=== PATIENT | male | born 1950 | race Caucasian/White ===

== ENCOUNTER 2019-05-31 06:10 | Inpatient (IN) ==
--- NOTE | 2019-05-17 11:33 | PAT Medication Instructions ---
Medication Instructions Date of Service May 17, 2019 Home Medications acetaminophen [Tylenol Extra Strength] 500 mg PO DAILY NEEDED flecainide 150 mg PO Q12H lisinopril-hydrochlorothiazide 1 tab PO QAM omeprazole 40 mg PO QAM sildenafil 40 mg PO DAILY NEEDED tamsulosin 0.4 mg PO QPM DO NOT take the morning of surgery lisinopril-hydrochlorothiazide 1 tab PO QAM Take morning of surgery With a small sip of water, OTHERWISE NOTHING TO EAT OR DRINK AFTER MIDNIGHT: acetaminophen [Tylenol Extra Strength] 500 mg PO DAILY NEEDED (if needed; stop 4 hours before surgery) omeprazole 40 mg PO QAM flecainide 150 mg PO Q12H Take evening before surgery acetaminophen [Tylenol Extra Strength] 500 mg PO DAILY NEEDED (if needed) tamsulosin 0.4 mg PO QPM sildenafil 40 mg PO DAILY NEEDED flecainide 150 mg PO Q12H Other Notes If you have any questions please call us at [phone] or [phone] or [phone] or [phone]
--- NOTE | 2019-05-17 11:43 | Anesthesiology Consultation ---
Date of Service May 17, 2019 Assessment & Plan (1) Encounter for pre-operative examination: - No previous anesthesia records Chart Review Chart Review: Pending: Refer to Additional Notes / Consult section (Patient is acceptable risk for surgery pending medical preoperative assesment from PCP. ) and Patient seen in Pre Admission Testing Consults Requested medical (Dr. Hannah (05/18)) Teaching & Discussion Pre-Anesthesia Teaching/Discussion Notes: Instructed NPO after midnight before surgery, except medications with 15 cc of water. Medication instructions provided according to the PAT guidelines. History Surgery Operation Date: 05/31/19 07:45 Proposed Procedures p L4-S1 Decompression and Fusion, Spinal Cord Monitoring - Carlos Zafar, Height/Weight Height: 6 ft 2 in Weight: 102.5 kg Allergies Allergy/AdvReac Type Severity Reaction Status Date / Time No Known Allergies Allergy Verified 04/26/19 08:03 Medications Home Medications Medication Instructions Recorded Confirmed Last Taken acetaminophen [Tylenol Extra 500 mg PO DAILY PRN 04/26/19 04/26/19 Unknown Strength] flecainide 150 mg PO Q12H 04/26/19 04/26/19 Unknown lisinopril-hydrochlorothiazide 1 tab PO QAM 04/26/19 04/26/19 Unknown omeprazole 40 mg PO QAM 04/26/19 04/26/19 Unknown sildenafil (antihypertensive) 40 mg PO DAILY PRN 04/26/19 04/26/19 Unknown tamsulosin 0.4 mg PO QAM 04/26/19 04/26/19 Unknown Past Medical History Medical History Atrial fibrillation BPH (benign prostatic hyperplasia) GERD (gastroesophageal reflux disease) History of Vu's esophagus History of GI bleed ?8-9 YR AGO D/T WARFARIN Hx of deep venous thrombosis Hypertension Leg pain, bilateral D/T NERVE PINCHED Exercise / Class Metabolic Activity III < 4 Walking/Shop/Light housework (Limited due to back pain into legs for the past 2 weeks. 2 weeks ago walked 15 miles. Denies CP or SOB. Able to climb FOS. ) Past Family History Family History Other FHx: cancer Past Surgical History Surgical History History of back surgery History of cardiac radiofrequency ablation ALTOONA - 5-6 YR AGO History of carpal tunnel surgery of right wrist History of colonoscopy History of esophagogastroduodenoscopy (EGD) History of total knee replacement RIGHT AND LEFT Hx of cardiac cath ? DATE 10 YR AGO RETA Hx of hernia repair BILATERAL INGUINAL Past Anesthesia History No Hx of Anesthesia Complications and No Family Hx of Anesthesia Complications History of PONV No Hx of PONV and No Hx of Motion Sickness Social History Smoking Status: Never smoker Do You Dip or Chew Tobacco: No Hx Alcohol Use: Yes Alcohol type: beer and hard liquor alcohol intake frequency: a few times a week Hx Substance Use: No Review of Systems Patient denies chest pain, shortness of breath, dyspnea on exertion, cough, wheezing, palpitations. +Joint Pain (Back into legs) +Acid Reflux (controlled with current medications) Physical Exam Vital Signs BP: 134/79 P: 68 R: 18 T: 98.0 SPO2: 97% on RA ENMT Mouth: + poor dentition Thyromental Distance: > or= 3.5 Finger Breadths (3.5) Mallampati Class: II Neck normal visual inspection and + facial hair (Will trim); neck extension not limited Respiratory normal respiratory effort Auscultation: lungs clear to auscultation bilaterally Cardiovascular Rate/Rhythm: regular rate and regular rhythm Heart Sounds: no murmur Vessels: no carotid bruit Neurologic moves all extremities Psychiatric Orientation: alert and oriented x 3 Testing Laboratory Results 05/17/19 11:55 05/17/19 11:55 PT 10.9 Seconds (9.0-12.0) 05/17/19 11:55 INR 1.1 (0.9-1.1) 05/17/19 11:55 APTT 27.8 Seconds (21.0-31.0) 05/17/19 11:55 Urine Color Yellow 05/17/19 11:55 Urine Appearance Clear (Clear) 05/17/19 11:55 Urine pH 6.5 (4.5-7.5) 05/17/19 11:55 Ur Specific [place] 1.013 (1.000-1.030) 05/17/19 11:55 Urine Protein Negative (Negative) 05/17/19 11:55 Urine Glucose (UA) Negative (Negative) 05/17/19 11:55 Urine Ketones Negative (Negative) 05/17/19 11:55 Urine Nitrite Negative (Negative) 05/17/19 11:55 Ur Leukocyte Esterase Negative (Negative) 05/17/19 11:55 Blood Type O Negative 05/17/19 11:55 Antibody Screen NEGATIVE 05/17/19 11:55 Electrocardiogram Date: 12/19/18 Findings: + NSR @ (78) and + RBBB Chest X-Ray Date: 05/17/19 Findings: + NAD
--- NOTE | 2019-05-17 12:34 | XRay Report ---
XR chest Pre-admission PA/Lat CLINICAL HISTORY: 68 years-old Male presenting with preoperative evaluation. TECHNIQUE: PA and lateral views of the chest were obtained. COMPARISON: None. FINDINGS: Cardiomediastinal silhouette normal. Elevation of the right hemidiaphragm. No focal opacity. No pleur al effusion or pneumothorax. Osseous structures normal. Upper abdomen normal. IMPRESSION: 1. No acute cardiopulmonary disease. Electronically signed by: Yuan Frank M.D. 05/17/2019 12:33 PM
[2019-05-17 12:56] LABS: Basophils # (auto) 0.02 K/uL (0-0.2); Basophils % (auto) 0.4 %; Eosinophils # (auto) 0.19 K/uL (0-0.5); Eosinophils % (auto) 3.6 %; Hematocrit (blood only) 41.5 % (42-52); Hemoglobin 14.6 g/dL (14.0-18.0); Immature Granulocytes # (auto) 0.01 K/uL (0.00-0.02); Immature Granulocytes % (auto) 0.2 %; Lymphocytes # (auto) 1.35 K/uL (1.2-3.4); Lymphocytes % (auto) 25.6 %; Mean Corpuscular Hemoglobin 31.5 pg (25-34); Mean Corpuscular Hgb Conc 35.2 g/dL (32-36); Mean Corpuscular Volume 89.6 fL (80-100); Mean Platelet Volume 9.4 fL (7.4-10.4); Monocytes # (auto) 0.33 K/uL (0.11-0.59); Monocytes % (auto) 6.3 %; Neutrophils # (auto) 3.37 K/uL (1.4-6.5); Neutrophils % (auto) 63.9 %; Platelet Count 177 K/uL (130-400); RDW Coefficient of Variation 13.1 % (11.5-14.5); RDW Standard Deviation 42.5 fL (36.4-46.3); Red Blood Count 4.63 M/uL (4.7-6.1); White Blood Count 5.27 K/uL (4.8-10.8)
[2019-05-17 13:08] LABS: INR 1.1 (0.9-1.1); Partial Thromboplastin Time 27.8 Seconds (21.0-31.0); Prothrombin Time 10.9 Seconds (9.0-12.0)
[2019-05-17 13:15] LABS: Appearance Urine Clear (Clear); BUN Creatinine Ratio 10.7 (10-20); Bilirubin Urine Negative (Negative); Blood Urine Negative (Negative); Calcium 9.6 mg/dl (8.5-10.1); Color Urine Yellow; Est GFR (African American) 69.2; Est GFR (Non-African American) 59.7; Glucose Urine UA Negative (Negative); Ketones Urine Negative (Negative); Leukocyte Esterase Urine Negative (Negative); Nitrite Urine Negative (Negative); Potassium 4.2 mmol/L (3.5-5.1); Protein Urine Negative (Negative); Specific Gravity Urine 1.013 (1.000-1.030); Urobilinogen Urine Negative (Negative); pH Urine 6.5 (4.5-7.5)
[~2019-05-31 06:10] MED LIST: ACETAMINOPHEN 500 MG TAB PO SCH; CEFAZOLIN 2000MG 2,000 MG/15 ML SYR IV SCH; CeleBREX 200 MG CAP PO SCH; GABAPENTIN 300 MG CAP PO SCH; LR 15ML/HR IV SCH
[2019-05-31] MEDS ORDERED: MIDAZOLAM HCL 1 MG/ML 2ML VIAL ONE (06:35)
[2019-05-31] MEDS ORDERED: fentaNYL citrate 100 MCG/2 ML VIAL ONE ×2 (06:36→08:11)
[2019-05-31] MEDS ORDERED: ONDANSETRON INJ 2 MG/ML 2 ML VIAL ONE (06:56)
[2019-05-31] MEDS ORDERED: ROCURONIUM BROMIDE 10 MG/ML 5 ML VIAL ONE (06:56)
[2019-05-31] MEDS ORDERED: PROPOFOL IV EMULSION 10 MG/ML 20 ML VIAL IV ONE (06:56)
[2019-05-31] MEDS ORDERED: DEXAMETHASONE SOD INJ 4 MG/ML VIAL ONE (06:56)
[2019-05-31] MEDS ORDERED: LIDOCAINE HCL 2% 2 ML VIAL/AMP(20MG/ML) INFIL ONE (06:56)
[2019-05-31] MEDS ORDERED: BUPIVACAINE/EPINEPHRINE 0.5% MPF 1:200,000 30 ML VIAL ONE (07:00)
[2019-05-31] MEDS ORDERED: BACITRACIN INJ 50,000 UNIT VIAL ONE (07:00)
--- NOTE | 2019-05-31 07:33 | History & Physical Bridge Note ---
Date of Service May 31, 2019 History & Physical Bridge Note I have examined the patient, reviewed the History & Physical and in the interval since the performance of the History & Physical I have noted the following changes of clinical significance: no changes noted
--- NOTE | 2019-05-31 07:34 | History & Physical Report ---
Date of Service May 31, 2019 Assessment & Plan (1) Spinal stenosis, lumbar region with neurogenic claudication: L4-S1 decompression and fusion Present on Admission?: Yes History of Present Illness Chief Complaint: Back and leg pain Primary Care Provider: Cade Hannah Persistent back and bilateral leg pain. After failing extensive course of nonoperative attention. Allergies Allergy/AdvReac Type Severity Reaction Status Date / Time No Known Allergies Allergy Verified 05/31/19 06:33 Home Medications Home Medications Medication Instructions Recorded Confirmed Type acetaminophen [Tylenol Extra 500 mg PO DAILY PRN 04/26/19 05/31/19 History Strength] flecainide 150 mg PO Q12H 04/26/19 05/31/19 History lisinopril-hydrochlorothiazide 1 tab PO QAM 04/26/19 05/31/19 History omeprazole 40 mg PO QAM 04/26/19 05/31/19 History sildenafil (antihypertensive) 40 mg PO DAILY PRN 04/26/19 05/31/19 History tamsulosin 0.4 mg PO QAM 04/26/19 05/31/19 History diltiazem HCl 120 mg PO DAILY 05/31/19 05/31/19 History Past Med/Surg History Family History Other FHx: cancer Social History Preferred Language: Persian Communication Ability: Effective Beliefs That Will Affect Care: None Current Living Situation: Spouse Other Information That Helps Us Care for You: No Feels Safe at Home: Yes Safety Concerns: Feels Safe At This Time Smoking Status: Never smoker Do You Dip or Chew Tobacco: No ; Second Hand Exposure: Yes (DAILY BASIS) ; Hx Alcohol Use: Yes Alcohol type: beer and hard liquor Hx Substance Use: No Physical Exam Physical Exam: Patient is alert and oriented neurologically intact. Results & Data Vital Signs (Past 12 Hours) Vital Signs Temp Pulse Resp BP Pulse Ox 05/31/19 06:25 36.7 C 66 18 156/90 H 97
[2019-05-31] MEDS ORDERED: HYDROmorphone INJ 1 MG/ML SYRINGE IV PRN (07:47)
[2019-05-31] MEDS ORDERED: ATROPINE SULFATE 0.1 MG/ML 10ML SYR IV PRN (07:47)
[2019-05-31] MEDS ORDERED: ONDANSETRON INJ 2 MG/ML 2 ML VIAL IV PRN ×2 (07:47→11:50)
[2019-05-31] MEDS ORDERED: ePHEDrine sulfate 50 MG/ML AMP IV PRN (07:47)
[2019-05-31] MEDS ORDERED: NEOSTIGMINE METHYLSULFATE 1 MG/ML 10ML VIAL ONE (09:18)
[2019-05-31] MEDS ORDERED: GLYCOPYRROLATE 0.2 MG/ML VIAL ONE (09:18)
[2019-05-31] MEDS ORDERED: HYDROmorphone INJ 2 MG/ML SYR/VIAL ONE (09:25)
[2019-05-31] MEDS ORDERED: FLOSEAL HEMOSTATIC MATRIX 10ML TOP ONE (09:58)
--- NOTE | 2019-05-31 10:10 | Operative Report ---
Post Operative Report Pre & Post Diagnosis Operation Date: 05/31/19 07:45 Pre-Op Diagnosis: LUMBAR SPINAL STENOSIS W/NEUROGENIC CLAUDICATION Post-Op Diagnosis: LUMBAR SPINAL STENOSIS W/NEUROGENIC CLAUDICATION Procedure Operation Date: 05/31/19 07:45 Actual Proceddure #1 revision lumbar decompression by bilateral medial facetectomies foraminotomies L3-4 L4-5 L5-S1. #2 posterior spinal fusion L4-5 L5-S1. #3 placement posterior instrumentation L4-5 5 S1 per #4 interbody fusion L4-5 L5- S1. #5 placement of peek cage 12 x 26 mm L4-5 and L5-S1. #6 placement of local autograft in the posterior lateral gutters. #7 placement Feese collagen sponge combined master graft in the posterior lateral gutters and ostial amp and interbody space. Surgeon Carlos Zafar, Keymodule Assembly Supervisor Marium Wise Estimated Blood Loss 150 Findings Consistent with Post-Op Diagnosis Specimens None Indications This is a 68-year-old male that presents with above-mentioned diagnosis after f ailing extensive course of nonoperative care elected to go the above-mentioned procedure. Description of Procedure Patient was met with identified and informed consent obtained. Patient was then taken to the operative suite underwent intubation placed in the prone position the Al table on top of the Pelon frame. All bony prominences well-padded eyes inspected to ensure no external pressure placed upon the peer at this point the lumbar spine was prepped and draped in a normal sterile fashion. Sharp dissection with the assistance of Bovie cautery was performed down to and exposing the remaining lamina and transverse processes of L4-L5 and the sacral ala bilaterally. From a caudal cephalad fashion a revision complete laminectomy of L5 L4 and partial L3 was performed including bilateral medial facetectomies and foraminotomies addressing severe stenosis. Pedicle screws were then placed in L4-L5 and S1 levels bilaterally with assistance of fluoroscopy the purposes jung placed. By way of a trans-foraminal approach on the right complete discectomy at L5-S1 was performed endplates curetted to subcortical bleeding bone and a 12 x 26 mm peek cage filled with osteo-amp bone graft tapped in position. And then proceeded L4-[address] of a trans-foraminal approach on the right complete discectomy was performed endplates curetted to subcortical bleeding bone and again a 12 x 26 mm peek cage filled with osteo-amp bone graft tapped in position. The rods were then locked in final position bilaterally. The transverse processes of L4-L5 and sacral ala bur to subcortical bleeding bone. Infuse collagen sponge mass graft and local autograft placed in the posterior lateral gutters. A 10 round DESTINY drain inserted. The incision was then closed with 1 Vicryl in the fascia 2-0 Vicryl subtenons seen for Monocryl for final skin closure. Steri-Strip sterile dressings placed. Patient will continue PACU stable condition. Please note spinal cord monitoring was utilized throughout the procedure no changes noted. Lastly Marium Wise was present at the entire procedure involved in patient positioning complex portions of the surgery and final skin closure. I attest to the content of the Intraoperative Record and any orders documented therein. Any exceptions are noted below.
--- NOTE | 2019-05-31 10:43 | Fluoroscopy Report ---
FL lumbar spine 2-3V CLINICAL HISTORY: L4-S1 DECOMPRESSION AND FUSION COMPARISON STUDY: None FLUOROSCOPY TIME: 26 seconds NUMBER OF FLUOROSCOPIC IMAGES: 2 FINDINGS: Image intensifier support for a posterior laminectomy and fusion at L4-L5 and S1. Disc spac es are present at L4-L5 and L5-S1. IMPRESSION: Image intensifier support for an L4-S1 laminectomy and fusion. The above report was generated using voice recognition software. It may contain grammatical, syntax or spelling errors. Electronically signed by: Lyle Vallejo M.D. 05/31/2019 10:41 AM
[2019-05-31] MEDS: fentaNYL citrate 100 MCG/2 ML VIAL IV PRN ×2 (10:52→10:59)
--- NOTE | 2019-05-31 11:26 | Anesthesiology Progress Note ---
Date of Service May 31, 2019 Anesthesia Post Procedure Vital Signs Vital Signs: Temp Pulse Pulse Resp BP BP Pulse Ox 05/31/19 11:08 36.4 C L 71 14 161/88 H 96 05/31/19 10:55 70 14 166/90 H 95 05/31/19 10:45 69 14 164/86 H 95 05/31/19 10:30 77 15 173/94 H 95 05/31/19 10:24 36.7 C 78 16 170/86 H 93 05/31/19 06:25 36.7 C 66 18 156/90 H 97 Pain Intensity Back: Pain Intensity: 4 Transfer of Care Handoff Completed per policy Notes Mental Status: alert / awake / arousable and participated in evaluation Patient Amnestic to Procedure: Yes Nausea / Vomiting: adequately controlled Pain: adequately controlled Airway Patency, RR, SpO2: stable & adequate BP & HR: stable & adequate Hydration State: stable & adequate Anesthetic Complications: no major complications apparent and Pt Satisfied with anesthetic care
[2019-05-31] MEDS ORDERED: ACETAMINOPHEN 500 MG TAB PO PRN ×2 (11:50)
[2019-05-31] MEDS ORDERED: MAGNESIUM HYDROXIDE SUSP 30 ML UDC PO PRN (11:50)
[2019-05-31] MEDS ORDERED: FAMOTIDINE 20 MG TAB PO PRN (11:50)
[2019-05-31] MEDS ORDERED: LORazepam 0.5 MG TAB PO PRN (11:50)
[2019-05-31] MEDS ORDERED: bisacodyL 10 MG SUPP PR PRN (11:50)
[2019-05-31] MEDS ORDERED: TRAMADOL HCL 50 MG TABLET PO PRN (11:50)
[2019-05-31] MEDS ORDERED: ONDANSETRON 4 MG TAB PO PRN (11:50)
[2019-05-31] MEDS ORDERED: ACETAMINOPHEN 1,000 MG/100 ML VIAL IV PRN (11:50)
[2019-05-31] MEDS ORDERED: METOCLOPRAMIDE HCL INJ 5 MG/ML 2 ML VIAL IV PRN (11:50)
[2019-05-31] MEDS ORDERED: NALOXONE HCL 0.4 MG/1 ML VIAL/CARP IV PRN (11:50)
[2019-05-31] MEDS ORDERED: SOD PHOSPHATE/SOD BIPHOSPHATE ENEMA 132 ML BTL PR PRN (11:50)
[2019-05-31] MEDS ORDERED: LORazepam 0.5 MG/1 ML VIAL IV PRN (11:50)
[2019-05-31] MEDS ORDERED: HYDROmorphone INJ 0.5 MG/0.5 ML SYR IV PRN (11:50)
[2019-05-31] MEDS ORDERED: DO NOT ADMINISTER FLU VACCINE PRN (11:50)
[2019-05-31] MEDS ORDERED: PROMETHAZINE HCL 12.5 MG in SODIUM CHLORIDE 0.9% 50 ML IV PRN (11:50)
[2019-05-31] MEDS ORDERED: DO NOT ADMINISTER PNEUMOCOCCAL VACCINE PRN (11:50)
[2019-05-31] MEDS: LACTATED RINGER'S 1,000 ML IV SCH ×2 (13:28→17:55)
[2019-05-31] MEDS: FLECAINIDE ACETATE 100 MG TABLET PO SCH ×2 (13:29→20:11)
[2019-05-31] MEDS: KETOROLAC TROMETHAMINE 15 MG/ML VIAL IV SCH ×2 (13:30→17:49)
--- NOTE | 2019-05-31 13:30 | Hospitalist Consultation ---
Date of Consultation May 31, 2019 Assessment & Plan (1) Spinal stenosis, lumbar region with neurogenic claudication: s/p lumbar decompression by bilateral medial facetectomies foraminotomies L3-4, L4-5 L5-S1; Posterior spinal fusion L4-5 L5-S1 and interbody fusion L4-5 L5-S1 -Currently stable -Pain management per surgical team -Check AM CBC, BMP -Follow up surgeon plan with respect to when to resume activity, PT eval -Currently on liquid diet post op. Advance as tolerated. (2) Status post lumbar spinal fusion: As above. (3) Paroxysmal atrial fibrillation: Currently rate controlled. -Physical exam revealed regular rate and review of op threat monitoring analyst tracing in chart shows sinus rhythm -Continue flecainide and diltiazem at home doses -CHADVAsc is 2. However, due to reported history of clinically significant bleeding and subsequent cessation of anticoagulation; will not anticoagulate patient even after the immediate post op period. -Continue follow up with automotive mechanic on discharge (4) Essential hypertension: Currently controlled. -Continue home dose of medication -Monitor BP (5) DVT prophylaxis: Currently on MARIBELL stockings -Ambulate early once ok by surgeon History of Present Illness Reason for Consultation: Post op medical management Requesting Physician: Carlos Zafar DO Attending Physician: Carlos Zafar DO History of Present Illness 68 year old man with history of Atrial fibrillation, Hypertension, BPH who presented for surgical management of lumbar spinal stenosis with neurogenic claudication. Patient reported he has been having back pain radiating to the lower extremities for months. This has failed conservative non operative management, hence the surgery. He has atrial fibrillation and was previously on anticoagulation (warfarin) which was discontinued a long time ago due to clinically significant bleeding. He has since being managed with flecainide by his automotive mechanic. Stated that diltiazem was added recently. No reported histoies of blood clots or stroke Reports Hypertension has been well controlled on lisinopril-HCTZ for many years. Had lumbar decompression by bilateral medial facetectomies foraminotomies L3-4, L4-5 L5-S1; Posterior spinal fusion L4-5 L5-S1 and interbody fusion L4-5 L5-S1 this morning under general anesthesia. At this time, patient reports only mild throat discomfort (after extubation). Denies any pain, headaches, drowsiness, cough. Allergies Allergy/AdvReac Type Severity Reaction Status Date / Time No Known Allergies Allergy Verified 05/31/19 06:33 Home Medications Home Medications Medication Instructions Recorded Confirmed Type acetaminophen [Tylenol Extra 500 mg PO DAILY PRN 04/26/19 05/31/19 History Strength] flecainide 150 mg PO Q12H 04/26/19 05/31/19 History lisinopril-hydrochlorothiazide 1 tab PO QAM 04/26/19 05/31/19 History omeprazole 40 mg PO QAM 04/26/19 05/31/19 History sildenafil (antihypertensive) 40 mg PO DAILY PRN 04/26/19 05/31/19 History tamsulosin 0.4 mg PO QAM 04/26/19 05/31/19 History diltiazem HCl 120 mg PO DAILY 05/31/19 05/31/19 History Patient History Family History Sister Breast cancer Brother Prostate cancer Mother Heart disease Other FHx: cancer Social History Preferred Language: Faroese Communication Ability: Effective Beliefs That Will Affect Care: None Current Living Situation: Spouse Other Information That Helps Us Care for You: No Feels Safe at Home: Yes Safety Concerns: Feels Safe At This Time Smoking Status: Never smoker Do You Dip or Chew Tobacco: No ; Second Hand Exposure: Yes (DAILY BASIS) ; Hx Alcohol Use: Yes Alcohol type: beer and hard liquor Hx Substance Use: No Review of Systems Review of Systems: Constitutional: No fever no chills Eyes: No diplopia, no eye pain or blurred vision Ear, Nose, Mouth, Throat: No ear discharge or pain, no hearing loss, no nasal congestion,+sore throat Respiratory: No cough, no dyspnea and no hemoptysis Cardiovascular: No chest pain, no chest pain with activity, no palpitations, no lightheadedness, no calf pain Gastrointestinal: No abdominal pain, No nausea, No vomiting, no heartburn, no constipation, no diarrhea/loose stools Genitourinary: No dysuria, no urinary frequency Musculoskeletal: +chronic pain radiating to both lower extremities, no muscle weakness Integumentary: No rash Neurologic: No headache, no numbness Psychiatric: No depression, no anxiety Endocrine: No cold intolerance, no heat intolerance Hematologic / Lymphatic: No bleeding Physical Exam Physical Exam: General: Well nourished, well hydrated , average body habitus, no acute distress and not ill appearing Eyes: PERRL, conjunctivae normal, not pale, anicteric sclerae, EOM intact bilaterally ENMT: External ear and nose normal, oropharynx normal Neck: Normal visual inspection Respiratory: Normal respiratory effort, no respiratory distress, Nasal cannula in-situ, lungs clear to auscultation, no crackles and no wheezes Cardiovascular: Pulse is RRR. Heart Sounds: normal S1 and normal S2; no murmurs. Vessels: normal pedal pulses Extremities: no pedal edema Chest (Breasts): Chest: normal inspection of chest Gastrointestinal (Abdomen): Abdomen is not distended, soft, non-tender to palpation, no guarding, no palpable hepatosplenomegaly, normal bowel sounds Musculoskeletal: No cyanosis or clubbing, power is grossly normal in upper extremities Skin: No rash noted on gross inspection Neurologic: Alert and oriented x 3, sensation grossly intact, limited assessment of power in lower extremities as patient just came back from op Psychiatric: Alert and oriented x 3, euthymic affect Lymphatic: No cervical lymphadenopathy Results & Data Vital Signs (Past 12 Hours) Vital Signs Temp Pulse Pulse Resp BP BP Pulse Ox 05/31/19 13:24 74 18 130/76 96 05/31/19 12:27 73 18 143/77 H 95 05/31/19 12:05 74 16 136/76 95 05/31/19 11:30 36.6 C 74 16 150/82 H 100 05/31/19 11:08 36.4 C L 71 14 161/88 H 96 05/31/19 10:55 70 14 166/90 H 95 05/31/19 10:45 69 14 164/86 H 95 05/31/19 10:30 77 15 173/94 H 05/31/19 10:24 36.7 C 78 16 170/86 H 93 05/31/19 06:25 36.7 C 66 18 156/90 H 97 Diagnostic Findings Lumbar xray showed support for L4-S1 laminectomy and fusion
[2019-05-31] MEDS: CEFAZOLIN 2000MG 2,000 MG/15 ML SYR IV SCH (16:13)
[2019-05-31] MEDS: DOCUSATE SODIUM/SENNA 50/8.6MG TAB PO SCH (20:10)
[2019-06-01] MEDS: ALUMINUM/MAGNESIUM SUSP 30 ML UDC PO PRN (00:10)
[2019-06-01] MEDS: CEFAZOLIN 2000MG 2,000 MG/15 ML SYR IV SCH (00:10)
[2019-06-01] MEDS: KETOROLAC TROMETHAMINE 15 MG/ML VIAL IV SCH ×2 (00:11→05:51)
[2019-06-01] MEDS: LACTATED RINGER'S 1,000 ML IV SCH (00:13)
[2019-06-01] MEDS: POLYETHYLENE (MIRALAX) 17 GM PACK PO SCH ×4 (05:51→23:18)
[2019-06-01 06:01] LABS: Hematocrit (blood only) 35.3 % (42-52); Hemoglobin 12.2 g/dL (14.0-18.0); Immature Granulocytes # (auto) 0.03 K/uL (0.00-0.02); Immature Granulocytes % (auto) 0.2 %; Lymphocytes # (auto) 0.71 K/uL (1.2-3.4); Lymphocytes % (auto) 5.6 %; Mean Corpuscular Hgb Conc 34.6 g/dL (32-36); Mean Corpuscular Volume 89.8 fL (80-100); Mean Platelet Volume 9.5 fL (7.4-10.4); Monocytes # (auto) 0.71 K/uL (0.11-0.59); Monocytes % (auto) 5.6 %; Neutrophils # (auto) 11.16 K/uL (1.4-6.5); Neutrophils % (auto) 88.6 %; Platelet Count 152 K/uL (130-400); RDW Coefficient of Variation 12.9 % (11.5-14.5); RDW Standard Deviation 42.3 fL (36.4-46.3); Red Blood Count 3.93 M/uL (4.7-6.1); White Blood Count 12.61 K/uL (4.8-10.8)
[2019-06-01 06:32] LABS: BUN Creatinine Ratio 15.9 (10-20); Calcium 8.4 mg/dl (8.5-10.1); Creatinine Clr Calc Pharmacy 69.5 ml/min; Est GFR (African American) 65.9; Est GFR (Non-African American) 56.9; Potassium 4.3 mmol/L (3.5-5.1)
--- NOTE | 2019-06-01 07:37 | Anesthesiology Progress Note ---
Date of Service June 01, 2019 Anesthesia Post Procedure Vital Signs Vital Signs: Temp Pulse Pulse Pulse Resp BP Pulse Ox 06/01/19 01:59 36.7 C 76 16 145/74 H 95 05/31/19 23:31 36.4 C L 71 16 119/67 95 05/31/19 19:31 36.8 C 76 16 133/73 95 05/31/19 16:51 93 05/31/19 15:33 36.8 C 77 16 125/78 96 05/31/19 14:29 76 18 132/79 97 05/31/19 14:04 97 05/31/19 13:24 74 18 130/76 96 05/31/19 12:27 73 18 143/77 H 95 05/31/19 12:05 74 16 136/76 95 05/31/19 11:30 36.6 C 74 16 150/82 H 100 05/31/19 11:08 36.4 C L 71 14 161/88 H 96 05/31/19 10:55 70 14 166/90 H 95 05/31/19 10:45 69 14 164/86 H 95 05/31/19 10:30 77 15 173/94 H 95 05/31/19 10:24 36.7 C 78 16 170/86 H 93 Pain Intensity Back: Pain Intensity: 4 Notes Mental Status: alert / awake / arousable and participated in evaluation Patient Amnestic to Procedure: Yes Nausea / Vomiting: adequately controlled Pain: adequately controlled Airway Patency, RR, SpO2: stable & adequate BP & HR: stable & adequate Hydration State: stable & adequate Anesthetic Complications: no major complications apparent
[2019-06-01] MEDS: OXYCODONE HCL IR 5 MG TAB (IMMEDIATE RELEASE) PO PRN ×3 (08:57→20:35)
[2019-06-01] MEDS: PANTOprazole 40 MG TAB PO SCH (08:58)
[2019-06-01] MEDS: FLECAINIDE ACETATE 100 MG TABLET PO SCH ×2 (08:58→20:03)
[2019-06-01] MEDS: TAMSULOSIN HCL 0.4 MG CAP PO SCH (08:58)
[2019-06-01] MEDS: dilTIAZem ER 120 MG CAPCR PO SCH (08:59)
[2019-06-01] MEDS: LISINOPRIL/HCTZ 20/12.5MG 1 TAB TAB PO SCH (08:59)
--- NOTE | 2019-06-01 09:26 | Hospitalist Progress Note ---
Date of Service June 01, 2019 Assessment & Plan (1) Spinal stenosis, lumbar region with neurogenic claudication: -s/p lumbar decompression by bilateral medial facetectomies foraminotomies L3-4, L4-5 L5-S1; Posterior spinal fusion L4-5 L5-S1 and interbody fusion L4-5 L5-S1 Operation Date: 05/31/[address] Zafar (#1 revision lumbar decompression by bilateral medial facetectomies foraminotomies L3-4 L4-5 L5-S1. #2 posterior spinal fusion L4-5 L5-S1. #3 placement posterior instrumentation L4-5 5 S1 per #4 interbody fusion L4-5 L5- S1. #5 placement of peek cage 12 x 26 mm L4-5 and L5-S1. #6 placement of local autograft in the posterior lateral gutters. #7 placement Feese collagen sponge combined master graft in the posterior lateral gutters and ostial amp and interbody space.) -pain medications prn, bowel regimen including scheduled miralax -DESTINY drain management as per general surgery service -on tamsulosin, may remove hancock for trial of void -regular diet as tolerated (2) Status post lumbar spinal fusion: As above. Postoperative leukocytosis and anemia -trend WBC and Hgb (3) Paroxysmal atrial fibrillation: -Currently rate controlled. -appears to be in regular rhythm on exam -Continue flecainide and diltiazem at home doses -CHADVAsc is 2. However, due to reported history of clinically significant bleeding and subsequent cessation of anticoagulation; would not anticoagulate patient systemically at this time (4) Essential hypertension: -Continue home dose lisinopril/HCTZ (5) DVT prophylaxis: Currently on MARIBELL stockings -Ambulate as tolerated with PT/OT Subjective Patient reports poor sleep at night due to coffee. no acute back pain. There is DESTNIY drain. Hancock in place and patient reports that nursing will discontinue hancock shortly. Patient was able to ambulate to bathroom with walker. No bowel movements since prior to surgery. no abdominal pain. no vomiting. patient has not been assessed by PT/OT yet. no chest pain. no palpitations. no dizziness. no headache. no shortness of breath Physical Exam Constitutional: WD/WN, vitals as above Eyes: PERRL, conjunctivae normal, anicteric sclerae EOM intact bilaterally ENMT: external ear and nose normal, oropharynx normal Neck: normal visual inspection Respiratory: normal respiratory effort, lungs clear to auscultation Cardiovascular: RRR, no murmur, no edema Gastrointestinal (Abdomen): normal bowel sounds, soft, nontender, no hepatosplenomegaly Musculoskeletal: Head/Neck/Chest: normocephalic and head atraumatic DESTINY drain to the back Neurologic: PERRL, EOMI, accommodation nl, no face palsy, no dysarthria Psychiatric: A+Ox3, euthymic affect Genitourinary: hancock in place Results & Data Vital Signs (Past 12 Hours) Vital Signs Temp Pulse Resp BP Pulse Ox 06/01/19 07:30 36.8 C 68 16 143/68 H 92 06/01/19 01:59 36.7 C 76 16 145/74 H 95 05/31/19 23:31 36.4 C L 71 16 119/67 95
--- NOTE | 2019-06-01 09:56 | Orthopedic Progress Note ---
Date of Service June 01, 2019 Assessment & Plan (1) Spinal stenosis, lumbar region with neurogenic claudication: This time will initiate physical therapy advance his bowel regiment hopefully discharge home the next few days. Present on Admission?: Yes Subjective Patient's back pain is controlled leg symptoms improved. Physical Exam Physical Exam: Patient is in the chair at the bedside. He has good strength testing. Results & Data Vital Signs (Past 12 Hours) Vital Signs Temp Pulse Resp BP Pulse Ox 06/01/19 07:30 36.8 C 68 16 143/68 H 92 06/01/19 01:59 36.7 C 76 16 145/74 H 95 05/31/19 23:31 36.4 C L 71 16 119/67 95
[2019-06-01] MEDS: DOCUSATE SODIUM/SENNA 50/8.6MG TAB PO SCH (20:04)
[2019-06-02] MEDS: ALUMINUM/MAGNESIUM SUSP 30 ML UDC PO PRN (01:10)
[2019-06-02] MEDS: POLYETHYLENE (MIRALAX) 17 GM PACK PO SCH ×4 (05:39→19:10)
[2019-06-02] MEDS: OXYCODONE HCL IR 5 MG TAB (IMMEDIATE RELEASE) PO PRN ×4 (06:04→22:03)
[2019-06-02 06:12] LABS: Hematocrit (blood only) 34.7 % (42-52); Hemoglobin 11.7 g/dL (14.0-18.0); Mean Corpuscular Hemoglobin 30.9 pg (25-34); Mean Corpuscular Hgb Conc 33.7 g/dL (32-36); Mean Corpuscular Volume 91.6 fL (80-100); Mean Platelet Volume 9.4 fL (7.4-10.4); Platelet Count 156 K/uL (130-400); RDW Coefficient of Variation 13.2 % (11.5-14.5); Red Blood Count 3.79 M/uL (4.7-6.1)
[2019-06-02 06:19] VITALS: O2SAT 93
[2019-06-02 06:45] LABS: Albumin Level 3.1 gm/dl (3.4-5.0); BUN Creatinine Ratio 16.4 (10-20); Calcium 8.8 mg/dl (8.5-10.1); Est GFR (African American) 69.9; Est GFR (Non-African American) 60.3; Potassium 4.2 mmol/L (3.5-5.1)
[2019-06-02 06:48] LABS: Albumin Globulin Ratio 0.9 (0.9-2); Bilirubin,Total 0.5 mg/dl (0.2-1); Globulin 3.5 gm/dl (2.5-4.0); Total Protein 6.6 gm/dl (6.4-8.2)
[2019-06-02] MEDS: dilTIAZem ER 120 MG CAPCR PO SCH (07:43)
[2019-06-02] MEDS: TAMSULOSIN HCL 0.4 MG CAP PO SCH (07:43)
[2019-06-02] MEDS: FLECAINIDE ACETATE 100 MG TABLET PO SCH ×2 (07:44→21:03)
[2019-06-02] MEDS: PANTOprazole 40 MG TAB PO SCH (07:44)
[2019-06-02] MEDS: LISINOPRIL/HCTZ 20/12.5MG 1 TAB TAB PO SCH (07:44)
--- NOTE | 2019-06-02 09:31 | Orthopedic Progress Note ---
Date of Service June 02, 2019 Assessment & Plan (1) Spinal stenosis, lumbar region with neurogenic claudication: This time we will continue physical therapy monitor DESTINY put dissipate discharge home tomorrow. Present on Admission?: Yes Subjective Patient's back pain is well controlled. Leg pain improved. Physical Exam Physical Exam: Patient is in the chair at the bedside. He is consent for testing. Appears comfortable. Results & Data Vital Signs (Past 12 Hours) Vital Signs Temp Pulse Resp BP Pulse Ox 06/02/19 06:18 37.5 C 76 16 134/73 93 06/01/19 23:16 37.0 C 66 16 125/64 94
--- NOTE | 2019-06-02 10:51 | Hospitalist Progress Note ---
Date of Service June 02, 2019 Assessment & Plan (1) Spinal stenosis, lumbar region with neurogenic claudication: POD # 2 s/p lumbar decompression by bilateral medial facetectomies foraminotomies L3-4, L4-5 L5-S1; Posterior spinal fusion L4-5 L5-S1 and interbody fusion L4-5 L5-S1 [address] Dr[address] Zafar -Per ortho for pain control, wound care, anticoagulation and activities -H&H stable, continue incentive spirometry, continue PT/OT -Has not had post-op bowel movement yet - continue scheduled Miralax, add additional agent PRN (2) Paroxysmal atrial fibrillation: Currently rate controlled. -Appears to be in regular rhythm on exam -Continue flecainide and diltiazem at home doses -CHADVAsc is 2. However, due to reported history of clinically significant bleeding and subsequent cessation of anticoagulation; would not anticoagulate patient systemically at this time (3) Essential hypertension: Normotensive -Continue home dose lisinopril/HCTZ (4) DVT prophylaxis: Currently on MARIBELL stockings -Ambulate as tolerated with PT/OT Dispo: Primary service planning on discharge home tomorrow Patient seen in collaboration with Dr. Rouse. Please see addendum. Supervising Physician Co-Signing Physician Notes I have seen and examined the patient and have discussed the case with the provider above. I agree with the assessment and plan as stated. My physical exam findings are reflected above and he is hemodynamically stable and doing well. DESTINY drain is still in place. PAF not on anticoagulation. Cont to hold DVT proph until cleared by spine surgeon. Thank you for this consultation. DO Nasim Subjective Seen and examined in 307-1. Feeling well today. Some surgical site pain but denies numbness or paresthesias in distal extremities. Eating well, no nausea or vomiting. Urinating with some hesitancy but no decreased output. No bowel movement post-op but passing flatus. Denies fever, chills, chest pain, palpitations or SOB. Review of Systems Review of Systems: At least ten systems reviewed and negative except as noted in the HPI. Physical Exam Physical Exam: General Appearance: WD/WN, vitals as above, NAD, sitting up in bedside chair, pleasant, conversing easily Head: normocephalic, atraumatic Eyes: normal inspection, PERRL, conjunctivae normal, anicteric sclerae ENT: external ear and nose normal, oropharynx normal Neck: trachea midline, no thyromegaly normal visual inspection Respiratory: normal respiratory effort, lungs clear to auscultation, no wheeze, rales, rhonchi. Normal insp/exp effort, no accessory muscle use Cardiovascular: regular rate, rhythm, no murmur, normal peripheral pulses Chest: normal inspection of chest Abdomen/GI: normal bowel sounds, soft, nontender, no hepatosplenomegaly Extremities/Musculoskelatal: Lumbosacral surgical bandage clean, dry, intact. DESTINY drain visualized. No cyanosis or clubbing, extremities motor strength 5/5 Neurologic: PERRL, EOMI, CN's II-XI intact bilaterally and moves all extremities Psychiatric: A+Ox3, euthymic affect Skin: no rashes, normal color, warm/dry Results & Data Vital Signs (Past 12 Hours) Vital Signs Temp Pulse Resp BP Pulse Ox 06/02/19 06:18 37.5 C 76 16 134/73 93 06/01/19 23:16 37.0 C 66 16 125/64 94 Laboratory Results Short CBC 06/02/19 Range/Units 05:48 WBC 9.70 (4.8-10.8) K/uL Hgb 11.7 L (14.0-18.0) g/dL Hct 34.7 L (42-52) % Plt Count 156 (130-400) K/uL BMP 06/02/19 05:48 Sodium 140 Potassium 4.2 Chloride 105 Carbon Dioxide 29 BUN 20 H Creatinine 1.21 Glucose 105 H Calcium 8.8 Liver Function 06/02/19 Range/Units 05:48 Total Bilirubin 0.5 (0.2-1) mg/dl AST 13 L (15-37) U/L ALT 17 (12-78) U/L Alkaline Phosphatase 46 (45-117) U/L Albumin 3.1 L (3.4-5.0) gm/dl
[2019-06-02] MEDS: DOCUSATE SODIUM/SENNA 50/8.6MG TAB PO SCH (21:04)
[2019-06-03] MEDS: POLYETHYLENE (MIRALAX) 17 GM PACK PO SCH ×2 (00:32→06:14)
[2019-06-03 05:56] LABS: Hematocrit (blood only) 36.2 % (42-52); Mean Corpuscular Hemoglobin 30.6 pg (25-34); Mean Corpuscular Hgb Conc 33.1 g/dL (32-36); Mean Corpuscular Volume 92.3 fL (80-100); Mean Platelet Volume 9.6 fL (7.4-10.4); Platelet Count 185 K/uL (130-400); RDW Coefficient of Variation 13.4 % (11.5-14.5); RDW Standard Deviation 44.8 fL (36.4-46.3); Red Blood Count 3.92 M/uL (4.7-6.1); White Blood Count 8.88 K/uL (4.8-10.8)
[2019-06-03 06:32] LABS: Calcium 8.7 mg/dl (8.5-10.1); Creatinine Clr Calc Pharmacy 69.5 ml/min; Est GFR (African American) 65.9; Est GFR (Non-African American) 56.9; Potassium 4.1 mmol/L (3.5-5.1)
[2019-06-03] MEDS: OXYCODONE HCL IR 5 MG TAB (IMMEDIATE RELEASE) PO PRN (07:42)
[2019-06-03] MEDS: PANTOprazole 40 MG TAB PO SCH (07:42)
[2019-06-03] MEDS: FLECAINIDE ACETATE 100 MG TABLET PO SCH (07:43)
[2019-06-03] MEDS: LISINOPRIL/HCTZ 20/12.5MG 1 TAB TAB PO SCH (07:43)
[2019-06-03] MEDS: dilTIAZem ER 120 MG CAPCR PO SCH (07:45)
[2019-06-03 08:25] VITALS: TEMP 98.4
[2019-06-03 09:45] VITALS: BP 128/74; PULSE 71
--- NOTE | 2019-06-03 10:29 | Discharge Summary ---
Date of Service June 03, 2019 Admission HPI Per Admitting Provider Persistent back and bilateral leg pain. After failing extensive course of nonoperative attention. Principal Diagnosis Lumbar spinal stenosis with neurogenic claudication Discharge Data Allergies Allergy/AdvReac Type Severity Reaction Status Date / Time No Known Allergies Allergy Verified 05/31/19 06:33 Consultations 05/31/19 11:50 Consult Case Management - Discharge Planning Routine Consult Hospitalist Routine Procedures Performed Operation Date: 05/31/19 07:45 Actual Procedures p L4-S1 Decompression and Fusion, Spinal Cord Monitoring; application of BMP (Not Applicable) - Carlos Zafar DO Ordered Studies 05/31/19 07:00 FL fluoroscopy <1hr Routine FL lumbar spine 2-3V Routine Hospital Course (1) Spinal stenosis, lumbar region with neurogenic claudication: Patient underwent multilevel lumbar decompression fusion tolerated as well as taken to orthopedic for postoperative. Postop day 1 he was opening bleeding well. Progressive postop day #2 and 3 DESTINY drain decreasing probably. Strength intact. Subsequent discharge home. Discharge orders instructions from the chart for further review. Total Time Total Time Spent Total Time Spent (In Minutes): 30 minutes Discharge Plan Discharge Items Patient Disposition: Home - Self-Care Reason For Visit: LUMBAR SPINAL STENOSIS W/NEUROGENIC CLAUDICATION Activity: Per Instructions section Non-emergency contact: Primary Care Provider Call non-emergency contact if: you have any medication questions Follow-up/Referrals: Cade Hannah [Primary Care Provider] - Diet: Regular Addtl Attending Provider Instructions: ACTIVITY RECOMMENDATIONS: SELF CARE INSTRUCTIONS AFTER THORACIC/LUMBAR FUSIONS 1. You may walk to your tolerance. It is good exercise for your legs and back. Expect some back and intermittent leg aches and pains. 2. You may perform "counter-top" level activities (make a sandwich, jacy with a project, etc.). 3. No bending or lifting of more than 10 pounds or back twisting of any nature (roll like a log when turning in bed). 4. You may ride in a car for 20-30 minutes at a time. No driving until after your first visit with your doctor. 5. Frequent changes of position and restricting sitting to 30 minutes at a time will help limit the amount of back spasms and stiffness you may experience. 6. You may discontinue the use of ambulatory aids (cane, crutches, etc.) once your strength and confidence allow. 7. You may supervisor paper testing the shower and let water strike your incision when you arrive home at least once daily. Do not take a tub bath, sit in a hot tub or go into a swimming pool until after your first recheck in the office. SPECIAL CARE INSTRUCTIONS: VERY IMPORTANT TO READ AND REVIEW A. Your surgical incision has been closed with a cosmetic suture under the skin that will dissolve in about 6 weeks. In 14 days, you can use a pair of clean scissors and cut the suture that is left outside of the skin at the ends of your incision. 1. The small skin tapes can be removed 7 days after surgery if they have not fallen off by that point. 2. You may keep the wound open to air as much as possible to promote healing after post-op day number 5 unless told otherwise by your doctor. 3. If you think the wound looks like it is becoming infected (redness or worsening drainage) and/or you are experiencing fever, chill or worsening back pain and muscle spasms, contact the office so that we may evaluate you as soon as possible. B. Complications are uncommon, but please contact us if you have any signs or symptoms of: 1. wound infection (fever higher than 102.5 degrees F, redness, separation of wound, drainage, or increasing pain from the incision) 2. blood clots in legs (pain, swelling, redness and warmth in legs) 3. urinary tract infection (fever higher than 102.5 degrees F, burning upon urination or increased frequency of urination) 4. nerve problems (inability to walk on your toes or heels, numbness, loss of bowel or bladder control) 5. any other symptoms that concern you C. Please call the office at if you have any concerns or questions about your operation or recovery. D. No smoking! Smoking drastically decreases the chance of a solid fusion. E. Do not take any anti-inflammatory medications (Indocin, Advil, Motrin, Aspirin, Naprosyn, etc.) as these may inhibit the chance of a solid fusion. Tylenol is okay to take for pain. MANAGING PAIN AFTER SPINAL SURGERY 1. Narcotic medication is intended for short-term use and will be provided for surgical pain. Surgical pain usually lasts for a period of 4-6 weeks. Narcotic medication includes Percocet, Vicodin, Darvocet, Tylenol #3 or Lortab. 2. Longer-term pain is more appropriately treated with non-narcotic medication such as Tylenol ES. 3. Muscle spasm is not appropriately treated with narcotics. Muscle relaxers such as Soma, Flexeril or Skelaxin can be used along with Tylenol ES. 4. Remember that we all live with some "aches and pains". This is not unusual or uncommon after an injury or as we get older. a. Back pain is expected and may include muscle spasms for 4 to 6 weeks after surgery. The pain should gradually improve. If the pain worsens for no apparent reason, please contact the office. b. Intermittent leg pain may also be experienced and should not be concerned about unless it worsens for no apparent reason. If so, please contact the office. 5. We will provide appropriate medication within the normal guidelines of their prescribed use. We will also be very cautious and aware of potential abuse and extended duration of patients' medication needs. a. Pain medications are for your comfort and to assist with sleep and rest so that the tissue can heal. They are not provided in order to return to normal activity and should not be used through the day. To do so or worsening pain at night can result from ongoing tissue damage and development of tolerance to the prescribed medicine. 6. Please allow 2-3 days to process refills. Prescriptions will not be mailed but must be picked up at the office. FOLLOW UP VISIT: Keep your scheduled follow-up appointment. Any questions, please call the office at . Addtl Deputy Editor In Chief Provider Instructions: ACTIVITY RECOMMENDATIONS: SELF CARE INSTRUCTIONS AFTER THORACIC/LUMBAR FUSIONS 1. You may walk to your tolerance. It is good exercise for your legs and back. Expect some back and intermittent leg aches and pains. 2. You may perform "counter-top" level activities (make a sandwich, jacy with a project, etc.). 3. No bending or lifting of more than 10 pounds or back twisting of any nature (roll like a log when turning in bed). 4. You may ride in a car for 20-30 minutes at a time. No driving until after your first visit with your doctor. 5. Frequent changes of position and restricting sitting to 30 minutes at a time will help limit the amount of back spasms and stiffness you may experience. 6. You may discontinue the use of ambulatory aids (cane, crutches, etc.) once your strength and confidence allow. 7. You may supervisor paper testing the shower and let water strike your incision when you arrive home at least once daily. Do not take a tub bath, sit in a hot tub or go into a swimming pool until after your first recheck in the office. SPECIAL CARE INSTRUCTIONS: VERY IMPORTANT TO READ AND REVIEW A. Your surgical incision has been closed with a cosmetic suture under the skin that will dissolve in about 6 weeks. In 14 days, you can use a pair of clean scissors and cut the suture that is left outside of the skin at the ends of your incision. 1. The small skin tapes can be removed 7 days after surgery if they have not fallen off by that point. 2. You may keep the wound open to air as much as possible to promote healing after post-op day number 5 unless told otherwise by your doctor. 3. If you think the wound looks like it is becoming infected (redness or worsening drainage) and/or you are experiencing fever, chill or worsening back pain and muscle spasms, contact the office so that we may evaluate you as soon as possible. B. Complications are uncommon, but please contact us if you have any signs or symptoms of: 1. wound infection (fever higher than 102.5 degrees F, redness, separation of wound, drainage, or increasing pain from the incision) 2. blood clots in legs (pain, swelling, redness and warmth in legs) 3. urinary tract infection (fever higher than 102.5 degrees F, burning upon urination or increased frequency of urination) 4. nerve problems (inability to walk on your toes or heels, numbness, loss of bowel or bladder control) 5. any other symptoms that concern you C. Please call the office at if you have any concerns or questions about your operation or recovery. D. No smoking! Smoking drastically decreases the chance of a solid fusion. E. Do not take any anti-inflammatory medications (Indocin, Advil, Motrin, Aspirin, Naprosyn, etc.) as these may inhibit the chance of a solid fusion. Tylenol is okay to take for pain. MANAGING PAIN AFTER SPINAL SURGERY 1. Narcotic medication is intended for short-term use and will be provided for surgical pain. Surgical pain usually lasts for a period of 4-6 weeks. Narcotic medication includes Percocet, Vicodin, Darvocet, Tylenol #3 or Lortab. 2. Longer-term pain is more appropriately treated with non-narcotic medication such as Tylenol ES. 3. Muscle spasm is not appropriately treated with narcotics. Muscle relaxers such as Soma, Flexeril or Skelaxin can be used along with Tylenol ES. 4. Remember that we all live with some "aches and pains". This is not unusual or uncommon after an injury or as we get older. a. Back pain is expected and may include muscle spasms for 4 to 6 weeks after surgery. The pain should gradually improve. If the pain worsens for no apparent reason, please contact the office. b. Intermittent leg pain may also be experienced and should not be concerned about unless it worsens for no apparent reason. If so, please contact the office. 5. We will provide appropriate medication within the normal guidelines of their prescribed use. We will also be very cautious and aware of potential abuse and extended duration of patients' medication needs. a. Pain medications are for your comfort and to assist with sleep and rest so that the tissue can heal. They are not provided in order to return to normal activity and should not be used through the day. To do so or worsening pain at night can result from ongoing tissue damage and development of tolerance to the prescribed medicine. 6. Please allow 2-3 days to process refills. Prescriptions will not be mailed but must be picked up at the office. FOLLOW UP VISIT: Keep your scheduled follow-up appointment. Any questions, please call the office at . Pending Studies at Discharge: No Stand-Alone Forms: My [facility], Opioid Pain Management Medications and DC Order Prescriptions: New tramadol 50 mg Tablet 50 mg PO Q4H PRN (Reason: Pain, Moderate) Qty: 30 RF: 0 oxycodone 5 mg Tablet 5 mg PO Q4H PRN (Reason: Pain, Severe) Qty: 30 RF: 0 Continued flecainide 150 mg Tablet 150 mg PO Q12H RF: 0 lisinopril-hydrochlorothiazide 20-12.5 mg Tablet 1 tab PO QAM RF: 0 omeprazole 40 mg Capsule,Delayed Release(Dr/Ec) 40 mg PO QAM RF: 0 tamsulosin 0.4 mg Capsule 0.4 mg PO QAM RF: 0 sildenafil (antihypertensive) 20 mg Tablet 40 mg PO DAILY PRN (Reason: Erectile Dysfunction) RF: 0 acetaminophen [Tylenol Extra Strength] 500 mg Tablet 500 mg PO DAILY PRN (Reason: Pain) RF: 0 diltiazem HCl 120 mg Capsule,Extended Release 24 Hr 120 mg PO DAILY RF: 0 Discharge Orders: Discharge Order (Routine); Ordered 06/03/19 Ordered By: Carlos Salguero/Other Patient Handouts: Safety Back Lifting, Safety Back Push Pull, Safety Back Sleep Pos, Safety Back Sit, Safety Back Stand, Tips Back Post Op Admission Data Admit Date/Time: 05/31/19 10:14 Attending Provider: Carlos Zafar Admit Provider: Carlos Zafar Primary Care Provider: Cade Hannah Other Providers: Jelly Rouse Other Interventions: Discharge Summary Assessment (RN) Last Done: 06/03/19 09:44
[2019-06-03] MEDS ORDERED: TAMSULOSIN HCL 0.4 MG CAP PO SCH (21:00)
--- NOTE | 2019-06-07 12:36 | Coding Query ---
ANEMIA To promote full compliance with coding requirements relating to patient care, physician participation is requested in all cases of medical records coder uncertainty. Please assist us with the question(s) below: Coding Question(s): The record reflects the following clinical findings: If these findings are indicative of anemia, please specify the known or suspected type by placing an "X" within the parenthesis (x). If other, please document type. Examples are: ( ) Acute blood loss anemia (x ) Acute Postoperative blood loss anemia ( ) Acute postoperative anemia due to dilutional fluids ( ) Anemia, unspecified or other ( ) Other: (please specify) ( ) Unable to determine Thank you Nanda GAYTAN
== END 2019-06-03 10:49 | disposition home or self-care (01) | DRG 454 ==
LOC: ASU 06:10 → 3E 10:14